=== PATIENT | female | born 1960 | race Caucasian/White ===

== ENCOUNTER 2017-08-10 17:46 | Emergency (ER) | payer OTHER | END 2017-08-10 20:52 | disposition home or self-care (01) | LOC: FTE 17:46 | DX: J06.9 Acute upper respiratory infection, unspecified (principal); J45.909 Unspecified asthma, uncomplicated | CPT/HCPCS: 99283 ==

== ENCOUNTER 2018-03-20 11:14 | Emergency (ER) | payer OTHER ==
[2018-03-20] MEDS: ACETAMINOPHEN 325 MG TAB PO (12:11)
[2018-03-20] MEDS: IPRATROPIUM (NEB) 0.5 MG/2.5 ML AMP HHN (12:29)
[2018-03-20] MEDS: ALBUTEROL 0.083% (NEB) 2.5 MG/3 ML AMP HHN (12:29)
== END 2018-03-20 13:04 | disposition home or self-care (01) ==
LOC: FTE 11:14
DX: R05 Cough (principal)
CPT/HCPCS: 94664; 99283-25

== ENCOUNTER 2018-09-03 06:01 | Emergency (ER) | payer OTHER ==
[2018-09-03] MEDS: PROMETHAZINE/CODEINE 5ML CUP PO (06:28)
== END 2018-09-03 06:53 | disposition home or self-care (01) ==
LOC: FTE 06:01
DX: J06.9 Acute upper respiratory infection, unspecified (principal); I10 Essential (primary) hypertension; J45.909 Unspecified asthma, uncomplicated
CPT/HCPCS: 99283; Z7502

== ENCOUNTER 2018-11-07 22:47 | Emergency (ER) | payer OTHER | END 2018-11-08 00:08 | disposition home or self-care (01) | LOC: FTE 11-08 00:08 | DX: K13.79 Other lesions of oral mucosa (principal); J45.909 Unspecified asthma, uncomplicated | CPT/HCPCS: 99283 ==